=== PATIENT | male | born 1990 ===

== ENCOUNTER 2019-05-22 12:22 | Emergency (ER) | payer SELFPAY ==
[~2019-05-22] VITALS: Ht 172.7 cm; Wt 91.0 kg
[2019-05-22] MEDS ORDERED: IBUPROFEN 600MG TABLET PO STA (13:14)
[2019-05-22 14:55] VITALS: BP 116/75
== END 2019-05-22 14:56 | disposition home or self-care (01) ==
LOC: ER 12:22
DX: J18.9 Pneumonia, unspecified organism (principal); B34.9 Viral infection, unspecified
CPT/HCPCS: 71045; 99283